=== PATIENT | female | born 1995 | race Caucasian/White ===

== ENCOUNTER 2020-06-23 00:59 | Outpatient (CLI) | payer OTHER ==
[~2020-06-23] VITALS: Ht 170.2 cm; Wt 94.8 kg
[2020-06-23 02:29] LABS: BASO % 0.1 % (0.0-1.0); EOS # 0.1 10^3/uL (0.0-0.5); EOS % 0.9 % (0.0-3.0); HEMATOCRIT 34.6 % (36.0-47.0); HEMOGLOBIN 11.6 g/dl (12.0-15.5); LYMPH # 1.3 10^3/uL (1.5-5.0); LYMPH % 18.8 % (24.0-44.0); MEAN CORPUSCULAR HEMOGLOBIN 28.7 pg (27.0-33.0); MEAN CORPUSCULAR HGB CONC 33.5 g/dl (32.0-36.5); MEAN CORPUSCULAR VOLUME 85.6 fl (80.0-96.0); MONO # 0.4 10^3/uL (0.0-0.8); MONO % 5.5 % (0.0-5.0); NEUTROPHILS # 5.1 10^3/uL (1.5-8.5); NEUTROPHILS % 74.3 % (36.0-66.0); PLATELET COUNT, AUTOMATED 188 10^3/uL (150-450); RED BLOOD COUNT 4.04 10^6/uL (4.00-5.40); WHITE BLOOD COUNT 6.9 10^3/uL (4.0-10.0)
[2020-06-23 02:51] LABS: HEMOGLOBIN A1c 5.1 %
[2020-06-23 02:58] LABS: GLUCOSE,RANDOM 88 MG/DL (LESS THAN 200)
--- NOTE | 2020-06-23 03:33 | REPVR ---
PROCEDURE INFORMATION: Exam: US First Trimester, Transabdominal Exam date and time: 06/23/2020 3:01 AM Age: 24 years old Clinical indication: Screening exam; Other: No care; ; Additional info: Bpp anatomy TECHNIQUE: Imaging protocol: Real-time transabdominal obstetrical ultrasound of the maternal pelvis and a first trimester , less than 14 weeks 0 days, with image documentation. COMPARISON: No relevant prior studies available. FINDINGS: Gestation: Single intrauterine fetus. Embryonic/ heart rate: heartbeat of 117 bpm. Presentation: Cephalic presentation. Placenta: Anterior placenta. The orbits, stomach, cord insertion, cord, placental cord insertion, bladder and visualized extremities appear normal. Amniotic fluid: Amniotic fluid is normal for gestational age. Amniotic fluid index: Normal MAZIN of 9.2 cm. Umbilical cord: Cord S/D ratio is 2.47. BIOMETRY: Gestational age (AUA): The composite gestational age by ultrasound is 39 weeks 3 days. Estimated due date (AUA): The EDC is 06/27/2020. Estimated weight: The estimated weight is 4024 grams and is 81st percentile. Biparietal diameter: The BPD measures 9.6 cm suggesting an age of 39 weeks 3 days. Head circumference: The head circumference measures 32.6 cm suggesting an age of 36 weeks 6 days. Abdominal circumference: The abdominal circumference measures 37.6 cm suggesting an age of 41 weeks 4 days. Femur length: The femur length measures 7.7 cm suggesting an age of 39 weeks 2 days. MATERNAL: Uterus: Grossly unremarkable. Intraperitoneal space: No intraperitoneal free fluid. IMPRESSION: 1. Single live intrauterine fetus in cephalic presentation with a composite age of 39 weeks 3 days. The EDC is 06/27/2020. 2. Estimated weight is 4024 g. 3. Normal MAZIN of 9.2 cm. Electronically signed by: Trent Arellano On 06/23/2020 03:32:34 AM
[2020-06-23 03:41] LABS: AMORPHOUS SEDIMENT SMALL (NEGATIVE); APPEARANCE, URINE HAZY (CLEAR); BACTERIA, URINE AUTO 1+ (NEGATIVE); BILIRUBIN, URINE AUTO NEGATIVE (NEGATIVE); BLOOD, URINE BLOOD NEGATIVE (NEGATIVE); COLOR, URINE YELLOW (YELLOW); GLUCOSE, URINE (UA) AUTO NEGATIVE (NEGATIVE); KETONE, URINE AUTO 2+ mg/dL (NEGATIVE); LEUKOCYTE ESTERASE, URINE AUTO NEGATIVE (NEGATIVE); MUCUS, URINE SMALL (NEGATIVE); NITRITE, URINE AUTO NEGATIVE (NEGATIVE); PROTEIN, URINE AUTO NEGATIVE (NEGATIVE); RBC, URINE AUTO 1 /HPF (0-3); SPECIFIC GRAVITY URINE AUTO 1.011 (1.002-1.035); SQUAMOUS EPITHELIAL CELL UR AU 3 /HPF (0-6); UROBILINOGEN, URINE AUTO 0.2 mg/dL (0.0-2.0); WBC, URINE AUTO 3 /HPF (0-3)
--- NOTE | 2020-06-23 04:22 | HPEPDOC ---
Obstetrical History & Physical General Date of Admission History of Present Illness 24 yo LMP 07/2019 IRREGULAR FOUND OCT 2019 BY POSITIVE TEST . HAD EARLY US EDC 06/23/2020 WAS 8 WEEKS. HAD ANATOMY SCAN TOLD FEMALE NO OTHER DETAILS . LAST VISIT TO 02/2020 LOST INSURANCE. NO RHOGAM AT 28 WEEKS DID 1 HR GTT WAS NORMAL? TODAY CONTRACTIONS NO SHOW NO DISCHARGE . 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 BREAST: . ABDOMEN: Gravid and non-tender to touch. FETUS: Is vertex (VTX) by sterile vaginal examination (SVE), fetus is vertex (VTX) by Yamil. HEART RATE: Regular rate and rhythm. LUNGS: Clear to auscultation (CTA). EXTREMITIES: No edema. No clonus. Deep tendon reflexes (DTRs) + . Laboratory Data 24H LABS Laboratory Tests 2 06/23/20 02:09: 06/23/20 02:15: Immature Granulocyte % (Auto) 0.4, Neutrophils (%) (Auto) 74.3H, Lymphocytes (%) (Auto) 18.8L, Monocytes (%) (Auto) 5.5H, Eosinophils (%) (Auto) 0.9, Basophils (%) (Auto) 0.1, Neutrophils # (Auto) 5.1, Lymphocytes # (Auto) 1.3L, Monocytes # (Auto) 0.4, Eosinophils # (Auto) 0.1, Basophils # (Auto) 0.0, Nucleated Red Blo od Cells % (auto) 0.0, Random Glucose 88, Estimated Mean Plasma Glucose 100, Hemoglobin A1c 5.1 06/23/20 03:20: Urine Color YELLOW, Urine Appearance HAZY, Urine pH 7.0, Urine Specific [place] 1.011, Urine Protein NEGATIVE, Urine Glucose (Auto)(UA) NEGATIVE, Urine Ketones (Auto) 2+H, Urine Blood NEGATIVE, Urine Nitrite NEGATIVE, Urine Bilirubin NEGATIVE, Urine Urobilinogen 0.2, Urine Leukocyte Esterase (Auto) NEGATIVE, Urine WBC (Auto) 3, Urine RBC (Auto) 1, Urine Hyaline Casts (Auto) 0, Urine Bacteria (Auto) 1+H, Urine Squamous Epithelial Cells 3, Urine Amorphous Sediment (Auto) SMALLH, Urine Mucus (Auto) SMALL, Urine Sperm (Auto) CBC/BMP Laboratory Tests 06/23/20 02:15 Microbiology Microbiology 06/23/20 Urine Culture, Received Pending 06/23/20 Group B Streptococcus Screen (KOLE), Received Pending Pertinent Laboratoy Data Blood Type: A- Anatomy Ultrasound Ultrasound Date: Jun 23, 2020 Normal Anatomy: Yes Placenta Previa: No Steroid Therapy Steroid Therapy: No Vaginal Examination Dilation: 2cm Effacement: 50% Station: -3 Cervical Consistency: Soft Cervical Position: Middle Presentation: Cephalic presentation Position: Vertex (occiput) Assessment Variability: Moderate Accelerations: Present Tocometer Contractions: Yes Frequency: irregular, greater than 9 min/apart Duration: less than 60 seconds Strength: palpated as mild Assessment/Plan Assessment RONNI is a 24-year-old (G 1 para (P0 at 39.5 weeks by 8 week ultrasound. 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 Diet: REG Group B Streptococcus (GBS) UNKNOWN Counseled on LABOR [facility] PROM TO CALL [facility] FOR APPOINTMENT Carlo Post MD Jun 23, 2020 04:22
[2020-06-23] MEDS ORDERED: PRENTAB9 PO (04:51)
[2020-06-23 10:14] LABS: CHLAMYDIA DNA AMPLIFICATION NEGATIVE (NEGATIVE); GC DNA AMPLIFICATION NEGATIVE (NEGATIVE)
[2020-06-23 16:15] LABS: HIV 1&2 SCREEN CENTAUR NEGATIVE (NEGATIVE)
== END 2020-06-23 05:20 | disposition home or self-care (01) ==
LOC: M LDO 00:59
PROVIDERS: ATTEND Obstetrics & Gynecology
DX: O47.1 False labor at or after 37 completed weeks of gestation (principal); Z3A.39 39 weeks gestation of pregnancy

== ENCOUNTER 2020-06-23 16:00 | Inpatient (IN) | payer OTHER ==
[~2020-06-23] VITALS: Ht 170.2 cm; Wt 96.0 kg
[~2020-06-23 16:00] MED LIST: PRENTAB9 PO
[2020-06-23] MEDS ORDERED: OXYTOCIN 30 UNITS IN 0.9% NaCl 500ML IV BAG (J2590) As Ordered ONE (16:20)
[2020-06-23 16:59] LABS: HEMATOCRIT 36.4 % (36.0-47.0); HEMOGLOBIN 12.1 g/dl (12.0-15.5); MEAN CORPUSCULAR HEMOGLOBIN 28.4 pg (27.0-33.0); MEAN CORPUSCULAR HGB CONC 33.2 g/dl (32.0-36.5); MEAN CORPUSCULAR VOLUME 85.4 fl (80.0-96.0); PLATELET COUNT, AUTOMATED 208 10^3/uL (150-450); RED BLOOD COUNT 4.26 10^6/uL (4.00-5.40); WHITE BLOOD COUNT 14.3 10^3/uL (4.0-10.0)
[2020-06-23 17:25] VITALS: BP 134/69
[2020-06-23 17:40] VITALS: BP 136/74
[2020-06-23 17:55] VITALS: BP 134/73
[2020-06-23 18:10] VITALS: BP 137/78
[2020-06-23 18:26] VITALS: BP 113/59
[2020-06-23 21:40] VITALS: BP 126/69
[2020-06-23] MEDS: SERTRALINE HCL 50 MG TAB PO SCH (21:56)
--- NOTE | 2020-06-24 01:58 | DNPDOC ---
[facility] Delivery Note Delivery Note DATE OF DELIVERY: 06/23/2020 PREDELIVERY DIAGNOSIS: 40+0/7 weeks' gestation and labor. POST DELIVERY DIAGNOSIS: Delivered. PROCEDURE: Spontaneous vaginal delivery. OUTPATIENT COORDINATOR: Dr. Jonn Noland ANESTHESIA: Local. ESTIMATED BLOOD LOSS: 200 mL. FINDINGS: 7 pound 13 ounce 3540g female , Score 9/9, no nuchal cord, no meconium. DELIVERY SUMMARY: Patient was seen by Dr. Post earlier in the day when H&P was completed due to poor care. Patient reported worsening ctx's and then SROM of clear fluid at 1530 at which time she represented to L&D. Upon arrival to L&D, SVE noted to be c/c/+2. Patient began pushing without anesthesia and with good maternal effort had spontaneous vaginal delivery of viable term female infant. Presentation OA with restitution to ROT with left shoulder anterior position. Compound anterior arm noted. Anterior shoulder and body delivered without difficulty. Infant placed on maternal effort with spontaneous cry noted and care transferred to Team. No nuchal cord or meconium appreciated. Inspection revealed 2nd degree perineal laceration that was actively bleeding. This was repaired under lidocaine 1% anesthesia with 2-0 vicryl in routine fashion with good approximation of tissue and hemostasis achieved. Pitocin IV bolus initiated. After 8 minutes of delayed cord clamping, three vessel cord clamped x2 and cut by FOB. Third stage spontaneous with intact placenta. Fundal massage revealed firm uterine tone and hemostasis. Mother and infant stable and bonding upon my leaving the room. JONN NOLAND DO Jun 24, 2020 01:58
--- NOTE | 2020-06-24 02:00 | HPEPDOC ---
Obstetrical History & Physical General Date of Admission Jun 23, 2020 at 16:13 Obstetrical History & Physical General Date of Admission History of Present Illness 24 yo LMP 07/2019 IRREGULAR FOUND OCT 2019 BY POSITIVE TEST . HAD EARLY US EDC 06/23/2020 WAS 8 WEEKS. HAD ANATOMY SCAN TOLD FEMALE NO OTHER DETAILS . LAST VISIT TO 02/2020 LOST INSURANCE. NO RHOGAM AT 28 WEEKS DID 1 HR GTT WAS NORMAL? TODAY CONTRACTIONS NO SHOW NO DISCHARGE . 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 BREAST: . ABDOMEN: Gravid and non-tender to touch. FETUS: Is vertex (VTX) by sterile vaginal examination (SVE), fetus is vertex (VTX) by Yamil. HEART RATE: Regular rate and rhythm. LUNGS: Clear to auscultation (CTA). EXTREMITIES: No edema. No clonus. Deep tendon reflexes (DTRs) + . Laboratory Data 24H LABS Laboratory Tests 2 06/23/20 02:09: 06/23/20 02:15: Immature Granulocyte % (Auto) 0.4, Neutrophils (%) (Auto) 74.3H, Lymphocytes (%) (Auto) 18.8L, Monocytes (%) (Auto) 5.5H, Eosinophils (%) (Auto) 0.9, Basophils (%) (Auto) 0.1, Neutrophils # (Auto) 5.1, Lymphocytes # (Auto) 1.3L, Monocytes # (Auto) 0.4, Eosinophils # (Auto) 0.1, Basophils # (Auto) 0.0, Nucleated Red Blood Cells % (auto) 0.0, Random Glucose 88, Estimated Mean Plasma Glucose 100, Hemoglobin A1c 5.1 06/23/20 03:20: Urine Color YELLOW, Urine Appearance HAZY, Urine pH 7.0, Urine Specific [place] 1.011, Urine Protein NEGATIVE, Urine Glucose (Auto)(UA) NEGATIVE, Urine Ketones (Auto) 2+H, Urine Blood NEGATIVE, Urine Nitrite NEGATIVE, Urine Bilirubin NEGATIVE, Urine Urobilinogen 0.2, Urine Leukocyte Esterase (Auto) NEGATIVE, Urine WBC (Auto) 3, Urine RBC (Auto) 1, Urine Hyaline Casts (Auto) 0, Urine Bacteria (Auto) 1+H, Urine Squamous Epithelial Cells 3, Urine Amorphous Sediment (Auto) SMALLH, Urine Mucus (Auto) SMALL, Urine Sperm (Auto) CBC/BMP Laboratory Tests 06/23/20 02:15 [Image 0] Microbiology Microbiology 06/23/20 Urine Culture, Received Pending 06/23/20 Group B Streptococcus Screen (KOLE), Received Pending Pertinent Laboratoy Data Blood Type: A- Anatomy Ultrasound Ultrasound Date: Jun 23, 2020 Normal Anatomy: Yes Placenta Previa: No Steroid Therapy Steroid Therapy: No Vaginal Examination Dilation: 2cm Effacement: 50% Station: -3 Cervical Consistency: Soft Cervical Position: Middle Presentation: Cephalic presentation Position: Vertex (occiput) Assessment Variability: Moderate Accelerations: Present Tocometer Contractions: Yes Frequency: irregular, greater than 9 min/apart Duration: less than 60 seconds Strength: palpated as mild Assessment/Plan Assessment/Plan Assessment RONNI is a 24-year-old (G 1 para (P0 at 39.5 weeks by 8 week ultrasound. 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 Diet: REG Group B Streptococcus (GBS) UNKNOWN Counseled on LABOR [facility] PROM TO CALL [facility] FOR APPOINTMENT Past Medical History Allergies Coded Allergies: SEAFOOD (Verified Allergy, Intermediate, hives , 06/23/20) fish oil (Verified Allergy, Unknown, 06/23/20) Medications Scheduled No.137/Iron/Folic Acd ( Vitamin Tablet) 1 Each Tablet, 1 TAB PO DAILY Physical Examination Laboratory Data 24H LABS Laboratory Tests 2 06/23/20 16:22: Nucleated Red Blood Cells % (auto) 0.0 06/23/20 16:38: Serology Scanned Report Hepatitis B Testing CBC/BMP Laboratory Tests 06/23/20 16:22 Assessment/Plan Plan Patient represented to L&D with SVE c/c/+2. This H&P copied forward from previou s encounter as within 24hr period and inability to complete due to patient's precipitous presentation. Please see delivery note for details. JONN NOLAND DO Jun 23, 2020 17:37
[2020-06-24 06:00] VITALS: BP 114/75
--- NOTE | 2020-06-24 06:59 | IPNPDOC ---
Progress Note Date of Service: Jun 24, 2020 Progress Note SUBJECT:ounces ( grams) with post vaginal laceration and repair, doing well day # 1. She has been ambulating, voiding spontaneously without issue and tolerating regular diet. Breast feeding without issue. Reports lochia is like a normal period. Patient is ambulating well. Reports some cramping with . Denies any pain. Voiding and stooling without difficulty. OBJECTIVE: VITAL SIGNS: Within normal limits, afebrile. Alert and oriented times three. Breath sounds clear to auscultation. Heart rate: Regular rate and rhythm, no murmurs, rubs or gallops. Abdomen: Fundus firm at U-2. Soft, NTTP. [Minimal] lochia. ASSESSMENT: Pt is a 24-year-old status post uncomplicated spontaneous vaginal delivery after presenting in active labor with spontaneous rupture of membranes (SROM), day 1. Vitals within normal limits, afebrile, he modynamically stable with no evidence of infection. PLAN: Discharge to home tomorrow Tylenol and Motrin for pain. Encourage breast feeding and ambulation Discussed return precautions at length. VS, I&O, 24H, Fishbone Vital Signs/I&O Vital Signs Date Time Temp Pulse Resp B/P (MAP) Pulse Ox O2 Delivery O2 Flow Rate FiO2 06/23/20 21:40 99.5 90 18 126/69 (88) I&O- Last 24 Hours up to 6 AM 06/24/20 06:00 Output Total 460 ml Balance -460 ml Laboratory Data 24H LABS Laboratory Tests 2 06/23/20 16:22: Nucleated Red Blood Cells % (auto) 0.0, Syphilis Serology NONREACTIVE 06/23/20 16:38: Serology Scanned Report Hepatitis B Testing CBC/BMP Laboratory Tests 06/23/20 16:22 ANTONY CHURCHILL MD Jun 24, 2020 06:59
[2020-06-24] MEDS: RHOGAM 300 MCG (1500 IU) INJ (J2790) IM SCH ×2 (10:38→15:52)
[2020-06-24 18:13] VITALS: BP 120/76
[2020-06-24] MEDS: SERTRALINE HCL 50 MG TAB PO SCH (20:06)
[2020-06-25 06:28] VITALS: BP 141/86
== END 2020-06-25 18:50 | disposition home or self-care (01) | DRG 807 ==
LOC: M LDO 16:00 → M LDI 16:13 → M OBS 21:28
PROVIDERS: ADMIT Specialist
PROC: 10E0XZZ Delivery of Products of Conception, External Approach (ICD-10-PCS; principal; 2020-06-23)
PROC: 0KQM0ZZ Repair Perineum Muscle, Open Approach (ICD-10-PCS; 2020-06-23)
DX: O32.6XX0 Maternal care for compound presentation, not applicable or unspecified (principal); Z37.0 Single live birth; Z3A.39 39 weeks gestation of pregnancy; O70.1 Second degree perineal laceration during delivery

== ENCOUNTER → 2020-08-18 | Outpatient (REF) | payer OTHER | LOC: M SFHCLERA 18:04 | PROVIDERS: ATTEND Nurse Practitioner Family | DX: R39.9 Unspecified symptoms and signs involving the genitourinary system (principal) | CPT/HCPCS: 11200; 81002; 87088; 87186; G0463 ==